=== PATIENT | female | born 1975 | race Caucasian/White ===

== ENCOUNTER 2022-12-07 19:37 | Emergency (ER) | payer BC ==
[~2022-12-07] VITALS: Ht 154.9 cm; Wt 77.1 kg
[2022-12-07 20:08] VITALS: BP 115/54; PULSE 70; RESP 20; TEMP 98; O2SAT 98
--- NOTE | 2022-12-07 20:18 | NUR ---
pt went to the lobby
[2022-12-07] MEDS ORDERED: LIDOCAINE MPF 1% 10 MG/ML VIAL INJ ONE (22:15)
--- NOTE | 2022-12-07 22:15 | NUR ---
PT TO BED
--- NOTE | 2022-12-07 22:30 | NUR ---
LAC TRAY AND SUTURE SET UP BS
[2022-12-07] MEDS ORDERED: IBUP-2213 PO (22:36)
[2022-12-07] MEDS ORDERED: IBUPROFEN 800 MG TAB PO ONE (22:45)
--- NOTE | 2022-12-07 22:56 | NUR ---
WRAPPED SUTURE AND LEFT KNEE WITH NON ADHERENT BANDAGE AND GAUZE WRAP
--- NOTE | 2022-12-07 23:09 | NUR ---
Patient discharged with v/s stable. Written and verbal after care instructions given and explained. Patient verbalized understanding. Ambulatory with steady gait. All questions addressed prior to discharge. Advised to follow up with PMD.
== END 2022-12-07 23:09 | disposition home or self-care (01) ==
LOC: MED 19:37
DX: S61.217A Laceration without foreign body of left little finger without damage to nail, initial encounter (principal); S80.212A Abrasion, left knee, initial encounter; W18.30XA Fall on same level, unspecified, initial encounter; Y93.89 Activity, other specified; Y92.89 Other specified places as the place of occurrence of the external cause; Y99.8 Other external cause status
CPT/HCPCS: 12001; 73130; 73562; 90471; 90715; 99284; J2001